=== PATIENT | male | born 1965 | race Hispanic/Latino ===

== ENCOUNTER 2024-03-19 08:57 | Day surgery (SDC) | payer OTHER, SELFPAY ==
[2024-03-19] MEDS ORDERED: Acetaminophen 500 MG TAB PO SCH (10:30)
[2024-03-19] MEDS ORDERED: diphenhydrAMINE 25 MG CAP PO SCH (10:30)
[2024-03-19] MEDS ORDERED: Acetaminophen 500 MG TAB ONE (10:46)
[2024-03-19 15:50] VITALS: BP 111/57; TEMP 97.9
== END 2024-03-19 16:01 | disposition home or self-care (01) ==
LOC: ONC/OP 08:57
PROVIDERS: ATTEND Internal Medicine Hematology & Oncology
DX: D64.9 Anemia, unspecified (principal)
CPT/HCPCS: 36430; 86850; 86870; 86900; 86901; 86922; P9016